=== PATIENT | male | born 1995 | race African-American/Black ===

== ENCOUNTER 2021-09-23 19:44 | Emergency (ER) | payer OTHER ==
[~2021-09-23] VITALS: Ht 188 cm; Wt 81.8 kg
[2021-09-23 19:47] VITALS: BP 146/96; PULSE 86; TEMP 98.2
== END 2021-09-23 20:50 | disposition home or self-care (01) ==
LOC: COL.ER 19:44
DX: S06.0X0A Concussion without loss of consciousness, initial encounter (principal); S05.31XA Ocular laceration without prolapse or loss of intraocular tissue, right eye, initial encounter; S71.111A Laceration without foreign body, right thigh, initial encounter; Z28.311 Partially vaccinated for COVID-19; Z23 Encounter for immunization; Y04.0XXA Assault by unarmed brawl or fight, initial encounter; Y92.149 Unspecified place in prison as the place of occurrence of the external cause